=== PATIENT | female | born 1995 | race Caucasian/White ===

== ENCOUNTER → 2017-09-24 | Outpatient (CLI) | payer BC ==
--- NOTE | 2017-09-24 13:40 | RADIOLOGY IMAGING REPORT ---
FACILITY: [facility] PATIENT NAME: Lisa Riley : 1995 MR: [id number] V: [id number] EXAM DATE: [id number] ORDERING PHYSICIAN: KELVIN KNIGHT TECHNOLOGIST: Location: [facility] Patient: Lisa Riley : 1995 Visit/Account:[id number] Date of Sevice: 09/24/2017 EXAMINATION: CT neck without IV contrast History: History of strep throat, peritonsillar abscess TECHNIQUE: Spiral scan was obtained from the hard palate through the upper chest without intravenou s contrast. One of the following dose optimization techniques was utilized in the performance of this exam: Automated exposure control; adjustment of the mA and/or kV according to the patient's size; or use of an iterative reconstruction technique. Specific details can be referenced in the facility's radiology CT exam operational policy. COMPARISON STUDIES: none. FINDINGS: Suprahyoid neck: negative Infrahyoid neck: negative Airway: negative Musculoskeletal / Body wall: negative Lymph node assessment: Mildly prominent level 2 lymph nodes likely reactive. Visualized orbits / brain / paranasal sinuses: negative Upper chest: negative IMPRESSION: Mildly prominent level 2 lymph nodes likely reactive. Otherwise negative noncontrast CT of the neck. Report Dictated By: Carson Patel MD at 09/24/2017 1:32 PM Report E-Signed By: Carson Patel MD at 09/24/2017 1:37 PM WSN:[id number]
== END ==
LOC: CT 12:51
PROVIDERS: ATTEND Nurse Practitioner Family
DX: R59.0 Localized enlarged lymph nodes (principal)
CPT/HCPCS: 70490